=== PATIENT | female | born 2000 | race Hispanic/Latino ===

== ENCOUNTER 2023-08-22 21:57 | Outpatient (CLI) | payer MEDICAID, SELFPAY ==
[2023-08-22 22:25] VITALS: RESP 16; TEMP 37.3
[2023-08-22 22:26] VITALS: BP 118/86; PULSE 90
[2023-08-22 22:28] VITALS: BMI 34.1
[2023-08-22 23:07] LABS: ROM Internal Control Test YES-OK TO RESULT pt. (Internal QC); ROM Patient Test Negative (Negative); Record Kit Lot#, ROM+ K1866
--- NOTE | 2023-08-23 07:40 | OB.TRI.NOTE ---
HPI - General HPI Narrative AMOR PALACIOS, is a 22 F who presents with leaking fluid. Patient reports feeling like fluid is continuously coming out. Describes fluid as clear and odorless. Has to wear a pad. Positive movement. Denies any pain, cramps or contractions. Maternal Data Information LOGAN Calculator Estimated Delivery Date Method Current WG Current Estimate 09/07/23 Manual 37w 6d PFSH PFSH Home Medications ?Medication ?Instructions ?Recorded ?Last Taken ?Type PNV#14-iron fum-FA#6-mdx-xoywaoyv cap PO 08/22/23 08/22/23 History 27 mg iron-1 mg-300 mg-50 mg capsule sertraline 50 mg tablet (Zoloft) 50 mg PO DAILY 08/22/23 08/22/23 History Allergy/AdvReac Type Severity Reaction Status Date / Time No Known Allergies Allergy Verified 08/22/23 22:30 ROS Eyes Eyes: Denies blurry vision Cardiovascular Cardiovascular: Reports none; Denies chest pain at rest, chest pain with activity or dizziness Respiratory/Chest Respiratory/Chest: Denies cough or dyspnea Gastrointestinal Gastrointestinal: Reports none and other; Denies diarrhea or vomiting Genitourinary Genitourinary: Denies dysuria Musculoskeletal Musculoskeletal: Reports none Integumentary Integumentary: Reports none; Denies rash Neurologic Neurologic: Denies dizziness, headache(s) or other visual disturbances Psychiatric Psychiatric: Reports none NST FHR Rate Baby A Baseline: 115-120 Variability:: Moderate Accelerations:: 15 x 15 Decelerations:: None NST Reactive:: Yes FHR Category:: Category I Uterine Activity:: None Assessment & Plan (1) 37 weeks gestation of : (2) Leakage of amniotic fluid: (3) History of asthma: PLAN: Plan ROM Plus= NEGATIVE NST reactive, Cat. 1 tracing D/C home with follow up in office
== END 2023-08-22 23:20 | disposition home or self-care (01) ==
LOC: WPOUT 22:15 → WP 22:16
PROVIDERS: PCP Internal Medicine; Referring Provider Advanced Practice Midwife; Visit Provider Advanced Practice Midwife
DX: O42.92 Full-term premature rupture of membranes, unspecified as to length of time between rupture and onset of labor (principal); Z3A.37 37 weeks gestation of pregnancy
CPT/HCPCS: 59025; 59050; 84112; 99221; G0378

== ENCOUNTER 2023-09-05 22:48 | Outpatient (CLI) | payer MEDICAID, SELFPAY ==
[2023-09-05 23:03] VITALS: BMI 34.7
[2023-09-05 23:11] VITALS: BP 145/77; PULSE 80; O2SAT 99
[2023-09-05 23:12] VITALS: RESP 16; TEMP 36.7
[2023-09-05 23:19] VITALS: BP 134/71; PULSE 84
[2023-09-06] MEDS: Acetaminophen 500 MG Tablet 1000 MG PO (00:12)
--- NOTE | 2023-09-06 07:32 | OB.TRI.NOTE ---
HPI - General General Date of Admission: 09/05/23 Date of Service: 09/06/23 Chief Complaint: contractions HPI Narrative AMOR PALACIOS, is a 22 F who presents with increasing contractions. No LOF no bleeding. Cervix unchanged from office visit. Sent home with labor precautions Maternal Data Information LOGAN Calculator Estimated Delivery Date Method Current WG Current Estimate 09/07/23 Manual 39w 6d Final LOGAN: 09/07/23 PFSH PFSH Home Medications ?Medication ?Instructions ?Recorded ?Last Taken ?Type PNV#14-iron fum-FA#1-obg-bwapabpi 1 cap PO DAILY 08/22/23 08/22/23 History 27 mg iron-1 mg-300 mg-50 mg capsule sertraline 50 mg tablet (Zoloft) 50 mg PO DAILY 08/22/23 09/05/23 History Allergy/AdvReac Type Severity Reaction Status Date / Time No Known Allergies Allergy Verified 09/05/23 23:07 History 1 Elective abortions Hx Para 0 Spontaneous abortions Hx # Term Pregnancies Ectopic pregnancies Hx # Pregnancies Multiple births # of living children NST FHR Rate Baby A Baseline: 120 Variability:: Moderate Accelerations:: 15 x 15 Decelerations:: None NST Reactive:: Yes FHR Category:: Category I Uterine Activity:: irregular to q3 Assessment & Plan (1) Uterine contractions: (2) 39 weeks gestation of : PLAN: Plan Return with increasing contraction frequency or increasing pain.
[2023-09-06 12:05] VITALS: BP 138/80; PULSE 73; RESP 17; TEMP 36.1
[2023-09-06] MEDS: hydrOXYzine 50 MG/ML Vial 25 MG IM (13:08)
[2023-09-06] MEDS: morphine 10 MG/ML Syringe IM (13:10)
--- NOTE | 2023-09-07 16:44 | OB.TRI.NOTE ---
HPI - General General Date of Admission: 09/05/23 Chief Complaint: contractions HPI Narrative AMOR PALACIOS, is a 22 F who presents at 40w0d for back pain, contractions. No vaginal bleeding Maternal Data Information LOGAN Calculator Estimated Delivery Date Method Current WG Current Estimate 09/07/23 Manual 40w 0d PFSH PFSH Home Medications ?Medication ?Instructions ?Recorded ?Last Taken ?Type PNV#14-iron fum-FA#7-jue-lufblkxy 1 cap PO DAILY 08/22/23 09/06/23 History 27 mg iron-1 mg-300 mg-50 mg capsule sertraline 50 mg tablet (Zoloft) 50 mg PO DAILY 08/22/23 09/06/23 History Allergy/AdvReac Type Severity Reaction Status Date / Time No Known Allergies Allergy Verified 09/06/23 12:18 History 1 Elective abortions Hx Para 0 Spontaneous abortions Hx # Term Pregnancies Ectopic pregnancies Hx # Pregnancies Multiple births # of living children NST FHR Rate Baby A Baseline: 125 Variability:: Moderate Accelerations:: 15 x 15 Decelerations:: Variable NST Reactive:: Yes Uterine Activity:: Irregular Assessment & Plan (1) False labor: (2) 39 weeks gestation of : (3) Uterine contractions: PLAN: Plan 1) No cervical change 2) False labor 3) Therapeutic rest with morphine and vistaril. 1 LR 4) D/C home
== END 2023-09-06 15:05 | disposition home or self-care (01) ==
LOC: WPOUT 22:58 → WP 22:59
PROVIDERS: PCP Internal Medicine; Referring Provider Advanced Practice Midwife; Visit Provider Advanced Practice Midwife
DX: O47.1 False labor at or after 37 completed weeks of gestation (principal); Z3A.39 39 weeks gestation of pregnancy; Z79.899 Other long term (current) drug therapy
CPT/HCPCS: 96372; 59025; 59050; 99221; G0378

== ENCOUNTER 2023-09-07 10:15 | Outpatient (CLI) | payer MEDICAID, SELFPAY ==
[2023-09-07 10:35] VITALS: BP 141/87; PULSE 73; RESP 16; TEMP 36.9; O2SAT 97
[2023-09-07 10:42] VITALS: BMI 33.7
[2023-09-07 10:48] VITALS: BP 121/75; PULSE 81
--- NOTE | 2023-09-07 10:59 | NURSING ---
Phone call placed to Fernando Nguyen. Updated on pt status and vaginal exam, as well as complaints. Plan is to give 1L bolus, recheck at end of that and send home if exam is unchanged and ROM is negative.
[2023-09-07] MEDS: Lactated Ringers 1,000 ML 999 ML IV (11:20)
[2023-09-07 11:38] LABS: ROM Internal Control Test YES-OK TO RESULT pt. (Internal QC); ROM Patient Test Negative (Negative); Record Kit Lot#, ROM+ K1866
--- NOTE | 2023-10-09 01:52 | OB.TRI.NOTE ---
HPI - General HPI Narrative AMOR PALACIOS, is a 22 F who presents at 39 weeks 6 days with irregular contractions. No vaginal bleeding. Possible fluid leakage. Maternal Data Information [employer] Calculator Estimated Delivery Date Method Current WG Current Estimate 09/26/23 Manual 41w 6d PFSH PFS Medical History (Updated 10/01/23 @ 06:06 by Merissa Nguyen CNM) (spontaneous vaginal delivery) Psychiatric disorder Home Medications ?Medication ?Instructions ?Recorded ?Last Taken ?Type PNV#14-iron fum-FA#1-mgw-zctoiryx 1 cap PO DAILY 08/22/23 09/08/23 20:00 History 27 mg iron-1 mg-300 mg-50 mg capsule sertraline 50 mg tablet (Zoloft) 50 mg PO DAILY depression 08/22/23 09/09/23 10:00 History Allergy/AdvReac Type Severity Reaction Status Date / Time No Known Allergies Allergy Verified 09/06/23 12:18 Surgical History (Updated 09/09/23 @ 15:35 by Aurora Boss) History of surgery Social History Smoking Status: Never smoker History 1 Elective abortions Hx Para 0 Spontaneous abortions Hx # Term Pregnancies Ectopic pregnancies Hx # Pregnancies Multiple births # of living children NST FHR Rate Baby A Baseline: 130 Variability:: Moderate Accelerations:: 15 x 15 Decelerations:: None NST Reactive:: Yes Uterine Activity:: every 3-10 minutes mild Assessment & Plan (1) False labor: PLAN: Plan 1) No cervical change 2) 1L LR bolus 3) ROM plus negative 4) D/C home
== END 2023-09-07 12:55 | disposition home or self-care (01) ==
LOC: WPOUT 10:23 → WP 10:24
PROVIDERS: PCP Internal Medicine; Referring Provider Advanced Practice Midwife; Visit Provider Advanced Practice Midwife
DX: O47.1 False labor at or after 37 completed weeks of gestation (principal); Z3A.39 39 weeks gestation of pregnancy
CPT/HCPCS: 59025; 59050 ×2; 84112; G0378 ×2; J7120; 99221

== ENCOUNTER 2023-09-09 14:10 | Inpatient (IN) | payer MEDICAID, SELFPAY ==
[2023-09-09] VITALS (34 sets, daily range): BP systolic 116–142; BP diastolic 56–89; PULSE 67–115; RESP 14–18; TEMP 36.3–37.4; O2SAT 97–100; BMI 34.2
[2023-09-09] MEDS: Penicillin G Pot 5,000,000 UNITS in 0.9% Normal Saline (100mL MB+) 100 ML 150 UNITS IV (14:40)
[2023-09-09] MEDS: Lactated Ringers 1,000 ML 50 ML IV (14:41)
[2023-09-09 15:17] LABS: Absolute Lymphocyte Count 1.32 X10^3/uL (0.83-4.51); Absolute Neutrophil Count 11.6 X10^3/uL (2.0-7.7); Basophil# 0.03 X10^3/uL; Basophil% 0.2 % (0-1); Hematocrit 37.5 % (37-47); Hemoglobin 11.7 g/dL (12.0-15.0); Lymphocyte # 1.32 X10^3/ul (0.83-4.51); Lymphocyte % 9.5 % (19-41); Mean Corp Hgb Conc 31.2 g/dL (32-36); Mean Corpuscular Hgb 24.1 pg (27.0-32.0); Mean Corpuscular Volume 77.3 fL (81-99); Mean Platelet Vol. 13.7 fl (6.2-12.0); Monocyte# 0.89 X10^3/uL; Monocyte% 6.4 % (0-10); NRBC Flagged by Analyzer 0 % (0-5); Neutrophil # 11.56 X10^3/uL (2.7-7.7); Neutrophil % 83.4 % (47-70); Platelet Count 172 K/mm3 (150-450); RBC Distribution Width CV 16.5 % (11.6-14.6); RBC Distribution Width SD 45.9 fl (35.1-43.9); Red Blood Count 4.85 M/mm3 (4.2-5.4); White Blood Count 13.9 K/mm3 (4.4-11.0)
[2023-09-09 15:50] LABS: AST(SGOT) 20 U/L (15-37); Alanine Aminotransfer ALT/SGPT 13 U/L (13-56); Creatinine, Serum 0.83 mg/dL (0.55-1.02); EST Glomerular Filtration Rate 91 mL/min (>60); Est Glom Filt Rate - Afr Amer 110 mL/min (>60); Estimated Creatinine Clearance 103.32 ml/min; Uric Acid 5.3 mg/dL (2.6-6.0)
[2023-09-09] MEDS: fentaNYL 100 MCG/2 ML Ampul IV (16:26)
[2023-09-09 16:28] LABS: Syphilis Antibodies Non-reactive
[2023-09-09] MEDS: Lactated Ringers 1,000 ML 999 ML IV (16:59)
[2023-09-09 17:50] LABS: Protein, Urine (Random) 62.5 mg/dL (<11.9); Protein:Creat Ratio 282 mg/g CRE (0-200)
[2023-09-09] MEDS: fentaNYL-bupivacaine (epidural) 100 ML BAG EPIDURAL ×2 (17:50→23:55)
[2023-09-09] MEDS: Penicillin G 3,000,000 Units 50 ML 100 UNITS IV ×2 (18:35→22:49)
[2023-09-09] MEDS: Lactated Ringers 1,000 ML 200 ML IV (20:06)
--- NOTE | 2023-09-09 21:38 | PCM.PN.OB ---
Subjective Subjective AROM with blood tinged fluid possible [facility] at 1815. 4cm/90/-1 cat 1 Objective Data Objective Data Vital Signs: Vital Signs Temp Pulse Resp BP Pulse Ox 97.9 F 100 16 129/67 H 100 09/09/23 21:31 09/09/23 21:33 09/09/23 21:31 09/09/23 21:33 09/09/23 21:31 Weight: 82.2 kg Body Mass Index (BMI) 34.2 Intake & Output: Intake and Output for Last 24 Hours 09/07/23 09/08/23 09/09/23 23:59 23:59 23:59 Intake Total 1903.33 / 1903.33 Output Total 300 / 300 Balance 1603.33 / 1603.33 Lab / Micro Data 09/09/23 14:30 09/09/23 14:30 Labs: Laboratory Results - last 24 hr 09/09/23 14:30: WBC 13.9 H, RBC 4.85, Hgb 11.7 L, Hct 37.5, MCV 77.3 L, MCH 24.1 L, MCHC 31.2 L, RDW Std Deviation 45.9 H, RDW Coeff of Silverio 16.5 H, Plt Count 172, MPV 13.7 H, Immature Gran % (Auto) 0.500, Neut % (Auto) 83.4 H, Lymph % (Auto) 9.5 L, [place] % (Auto) 6.4, Eos % (Auto) 0.0, Baso % (Auto) 0.2, Absolute Neuts (auto) 11.6 H, Absolute Lymphs (auto) 1.32, Nucleated RBC % 0, Creatinine 0.83, Estim Creat Clear Calc 103.32, Est GFR (MDRD) Af Amer 110, Est GFR (MDRD) Non-Af 91, Uric Acid 5.3, AST 20, ALT 13, Syphilis Total Ab Non-reactive, Blood Type B POSITIVE, Antibody Screen NEGATIVE 09/09/23 17:20: U Random Total Protein 62.5 H, Urine Creatinine 222.00, Protein/Creatinin Ratio 282 H NST FHR Rate Baby A Baseline: 130 Variability:: Moderate Accelerations:: 15 x 15 Decelerations:: None NST Reactive:: Yes FHR Category:: Category I
--- NOTE | 2023-09-09 21:45 | PCM.HP.OB ---
HPI - General General Date of Admission: 09/09/23 Date of Service: 09/09/23 Chief Complaint: labor HPI Narrative AMOR PALACIOS, is a 22 F who presents active labor Maternal Data Information LOGAN Calculator Estimated Delivery Date Method Current WG Current Estimate 09/07/23 Manual 40w 2d Final LOGAN: 09/07/23 Gestational age: 40+2 PFSH PFSH Medical History (Updated 09/09/23 @ 21:[address] Keila Choudhury MD) Psychiatric disorder Home Medications ?Medication ?Instructions ?Recorded ?Last Taken ?Type PNV#14-iron fum-FA#6-oiy-ughpfkbn 1 cap PO DAILY 08/22/23 09/08/23 20:00 History 27 mg iron-1 mg-300 mg-50 mg capsule sertraline 50 mg tablet (Zoloft) 50 mg PO DAILY depression 08/22/23 09/09/23 10:00 History Allergy/AdvReac Type Severity Reaction Status Date / Time No Known Allergies Allergy Verified 09/06/23 12:18 Surgical History (Updated 09/09/23 @ 15:35 by Aurora Boss) History of surgery Social History Smoking Status: Never smoker History 1 Elective abortions Hx Para 0 Spontaneous abortions Hx # Term Pregnancies Ectopic pregnancies Hx # Pregnancies Multiple births # of living children NST FHR Rate Baby A Baseline: 140 Variability:: Moderate Accelerations:: 15 x 15 Decelerations:: None NST Reactive:: Yes FHR Category:: Category I Vital Signs Vital Signs Vital Signs: 09/09/23 13:55 09/09/23 13:55 09/09/23 13:55 Temperature Temperature Source Pulse Rate 84 82 Respiratory Rate Blood Pressure 142/86 H BP Systolic 142 BP Diastolic 86 Pulse Ox 09/09/23 13:55 09/09/23 14:01 09/09/23 14:01 Temperature Temperature Source Pulse Rate 84 Respiratory Rate Blood Pressure BP Systolic BP Diastolic Pulse Ox 100 99 09/09/23 14:06 09/09/23 14:06 09/09/23 14:10 Temperature Temperature Source Pulse Rate 78 Respiratory Rate Blood Pressure 139/89 H BP Systolic 139 BP Diastolic 89 Pulse Ox 98 09/09/23 14:10 09/09/23 14:11 09/09/23 14:11 Temperature Temperature Source Pulse Rate 67 85 Respiratory Rate Blood Pressure BP Systolic BP Diastolic Pulse Ox 97 09/09/23 14:16 09/09/23 14:16 09/09/23 14:21 Temperature Temperature Source Pulse Rate 81 79 Respiratory Rate Blood Pressure BP Systolic BP Diastolic Pulse Ox 98 09/09/23 14:21 09/09/23 15:15 09/09/23 15:15 Temperature Temperature Source Temporal Pulse Rate 82 Respiratory Rate Blood Pressure BP Systolic BP Diastolic Pulse Ox 99 09/09/23 15:15 09/09/23 15:15 09/09/23 15:15 Temperature 99.3 F H Temperature Source Pulse Rate Respiratory Rate 18 Blood Pressure BP Systolic BP Diastolic Pulse Ox 99 09/09/23 15:16 09/09/23 15:16 09/09/23 16:13 Temperature Temperature Source Pulse Rate 82 Respiratory Rate Blood Pressure 139/87 H BP Systolic 139 BP Diastolic 87 Pulse Ox 98 09/09/23 16:48 09/09/23 16:48 09/09/23 17:37 Temperature Temperature Source Pulse Rate 69 91 Respiratory Rate Blood Pressure 131/78 H BP Systolic 131 BP Diastolic 78 Pulse Ox 09/09/23 17:37 09/09/23 17:42 09/09/23 17:42 Temperature Temperature Source Pulse Rate 93 Respiratory Rate Blood Pressure BP Systolic BP Diastolic Pulse Ox 100 100 09/09/23 17:42 09/09/23 17:46 09/09/23 17:46 Temperature Temperature Source Pulse Rate 91 Respiratory Rate 18 Blood Pressure 121/65 H BP Systolic 121 BP Diastolic 65 Pulse Ox 09/09/23 17:47 09/09/23 17:47 09/09/23 17:48 Temperature Temperature Source Temporal Pulse Rate 100 Respiratory Rate Blood Pressure BP Systolic BP Diastolic Pulse Ox 97 09/09/23 17:48 09/09/23 17:48 09/09/23 17:52 Temperature 98.2 F Temperature Source Pulse Rate Respiratory Rate 16 Blood Pressure 117/56 L BP Systolic 117 BP Diastolic 56 Pulse Ox 09/09/23 17:52 09/09/23 17:52 09/09/23 17:52 Temperature Temperature Source Pulse Rate 93 94 Respiratory Rate 15 Blood Pressure BP Systolic BP Diastolic Pulse Ox 09/09/23 17:52 09/09/23 17:56 09/09/23 17:56 Temperature Temperature Source Pulse Rate 98 Respiratory Rate Blood Pressure 116/57 L BP Systolic 116 BP Diastolic 57 Pulse Ox 97 09/09/23 17:57 09/09/23 17:57 09/09/23 17:57 Temperature Temperature Source Pulse Rate 96 Respiratory Rate 16 Blood Pressure BP Systolic BP Diastolic Pulse Ox 97 09/09/23 18:02 09/09/23 18:02 09/09/23 18:02 Temperature Temperature Source Pulse Rate 99 Respiratory Rate Blood Pressure 121/59 H BP Systolic 121 BP Diastolic 59 Pulse Ox 98 09/09/23 18:02 09/09/23 18:07 09/09/23 18:07 Temperature Temperature Source Pulse Rate 92 Respiratory Rate 17 Blood Pressure 124/65 H BP Systolic 124 BP Diastolic 65 Pulse Ox 09/09/23 18:07 09/09/23 18:07 09/09/23 18:07 Temperature Temperature Source Pulse Rate 89 Respiratory Rate 15 Blood Pressure BP Systolic BP Diastolic Pulse Ox 98 09/09/23 18:11 09/09/23 18:11 09/09/23 18:12 Temperature Temperature Source Pulse Rate 86 88 Respiratory Rate Blood Pressure 116/58 L BP Systolic 116 BP Diastolic 58 Pulse Ox 09/09/23 18:12 09/09/23 18:12 09/09/23 18:12 Temperature Temperature Source Temporal Pulse Rate Respiratory Rate 16 Blood Pressure BP Systolic BP Diastolic Pulse Ox 97 09/09/23 18:12 09/09/23 18:39 09/09/23 18:39 Temperature 98.0 F Temperature Source Pulse Rate 82 Respiratory Rate Blood Pressure BP Systolic BP Diastolic Pulse Ox 99 09/09/23 18:41 09/09/23 18:41 09/09/23 18:41 Temperature Temperature Source Temporal Pulse Rate 82 Respiratory Rate Blood Pressure 116/74 BP Systolic 116 BP Diastolic 74 Pulse Ox 09/09/23 18:41 09/09/23 18:41 09/09/23 19:37 Temperature 98.4 F Temperature Source Pulse Rate Respiratory Rate 15 Blood Pressure 116/60 BP Systolic 116 BP Diastolic 60 Pulse Ox 09/09/23 19:37 09/09/23 19:37 09/09/23 19:37 Temperature Temperature Source Temporal Pulse Rate 86 Respiratory Rate Blood Pressure BP Systolic BP Diastolic Pulse Ox 99 09/09/23 19:37 09/09/23 19:37 09/09/23 19:45 Temperature 98.8 F Temperature Source Pulse Rate 101 H Respiratory Rate 14 Blood Pressure BP Systolic BP Diastolic Pulse Ox 09/09/23 19:45 09/09/23 19:51 09/09/23 19:51 Temperature Temperature Source Pulse Rate 101 H Respiratory Rate Blood Pressure BP Systolic BP Diastolic Pulse Ox 98 100 09/09/23 20:15 09/09/23 20:15 09/09/23 20:15 Temperature Temperature Source Temporal Pulse Rate 106 H Respiratory Rate Blood Pressure 124/74 H BP Systolic 124 BP Diastolic 74 Pulse Ox 09/09/23 20:15 09/09/23 20:15 09/09/23 21:31 Temperature 97.4 F L Temperature Source Pulse Rate 95 Respiratory Rate 16 Blood Pressure BP Systolic BP Diastolic Pulse Ox 09/09/23 21:31 09/09/23 21:31 09/09/23 21:31 Temperature Temperature Source Temporal Pulse Rate Respiratory Rate 16 Blood Pressure BP Systolic BP Diastolic Pulse Ox 100 09/09/23 21:31 09/09/23 21:33 09/09/23 21:33 Temperature 97.9 F Temperature Source Pulse Rate 100 Respiratory Rate Blood Pressure 129/67 H BP Systolic 129 BP Diastolic 67 Pulse Ox Weight Weight: 82.2 kg Body Mass Index (BMI) 34.2 Labs Labs Labs: Blood Type B POSITIVE Antibody Screen NEGATIVE Hct 37.5 % (37-47) Hgb 11.7 g/dL (12.0-15.0) L Syphilis Total Ab Non-reactive Assessment & Plan (1) Active labor at term: (2) 40 weeks gestation of : (3) Positive GBS test: PLAN: Plan Augmentation prn PCN for GBS Epidural prn
[2023-09-10] VITALS (55 sets, daily range): BP systolic 106–139; BP diastolic 57–80; PULSE 62–132; RESP 14–18; TEMP 36.3–37.5; O2SAT 97–100
[2023-09-10] MEDS: Oxytocin 15 Units/NS 250ml 15 UNITS/250 ML IV.SOLN 2 UNITS IV (00:38)
[2023-09-10] MEDS: Lactated Ringers 1,000 ML 200 ML IV (01:05)
[2023-09-10] MEDS: Penicillin G 3,000,000 Units 50 ML 100 UNITS IV (03:10)
--- NOTE | 2023-09-10 05:50 | EX.PCM.OBRPT ---
Assessment & Plan (1) (spontaneous vaginal delivery): (2) Positive GBS test: (3) 40 weeks gestation of : Maternal Data Information LOGAN Calculator Estimated Delivery Date Method Current WG Current Estimate 09/07/23 Manual 40w 3d Final LOGAN: 09/07/23 Gestational age: 40+3 Doctor Who Attended Delivery: Abraham Kessler Vaginal Delivery Maternal Presentation Maternal Presentation: Active Labor Maternal Presentation: Presented in active labor, membranes intact Type of Induction: Pitocin and Amniotomy Operative Information Date of Procedure: 09/10/23 Pre-Operative Diagnosis: Labor at term Post-Operative Diagnosis: same Surgery / Procedure Performed: Spontaneous Vaginal Delivery Type of Anesthesia: Epidural Drain: Dean to straight drain Estimated Blood Loss: 100 cc Time of Delivery: 05:34 Findings Description of Procedure: Patient progressed to complete and pushed for about 1 hour delivering the head OA followed by the anterior and posterior shoulders with ease. The infant was placed on the maternal abdomen. The cord was clamped and cut. The placenta was delivered with manual traction. No lacerations were found. Presentation: Vertex and LIZZY Amniotic Membrane Rupture Type: Artificial Time of Membrane Rupture: 1814 Amniotic Fluid Description: Moderate meconium Placental Delivery Description: Spontaneous Placenta Disposition: [facility] Cord Vessel Description: 3 Vessels Cord Entanglement: None Infant A Gender: Male (1 minute): 7 (5 minute): 8 Delayed Cord Clamping: Yes Post Vaginal Delivery Medications Given After Delivery: IV Pitocin Episiotomy Description: None Laceration: None Complication Complications: None
[2023-09-10] MEDS: Oxytocin 15 Units/NS 250ml 15 UNITS/250 ML IV.SOLN 83 UNITS IV (06:07)
[2023-09-10] MEDS: Acetaminophen 500 MG Tablet 1000 MG PO ×2 (06:16→15:37)
[2023-09-10] MEDS: Lactated Ringers 500 ML 999 ML IV (06:18)
[2023-09-10] MEDS: Prenatal Vits Tablet 1 TABLET PO (11:06)
[2023-09-10] MEDS: Sertraline 50 MG Tablet PO (11:06)
[2023-09-11 04:20] VITALS: BP 118/78; PULSE 90; RESP 12; TEMP 36.4; O2SAT 99
--- NOTE | 2023-09-11 08:47 | PCM.DC.SUM ---
Providers Date of Admission: 09/09/23 Primary Care Physician: Dr. Funmilayo Berger DO Reason For Visit: VAGINAL DELIVERY Diagnosis Discharge Diagnosis (1) (spontaneous vaginal delivery): Status: Acute Code(s): O80 - Encounter for full-term uncomplicated delivery (2) 40 weeks gestation of : Status: Acute Code(s): Z3A.40 - 40 weeks gestation of (3) Active labor at term: Status: Acute Medications at Discharge Home Medications PNV#14-iron fum-FA#2-cri-nwzvyjwk 27 mg iron-1 mg-300 mg-50 mg capsule 1 cap PO DAILY 08/22/23 sertraline 50 mg tablet (Zoloft) 50 mg PO DAILY depression 08/22/23 Hospital Course Operations None Procedures None Summary of Care Provided Minutes Spent on Discharge: 15 Hospital Course: Patient had . Hospital course was uneventful. Physical Exam Narrative Patient seen at bedside. Denies pain. Ambulating and voiding without difficulty. Lochia decreased. Desires discharge home today. Const alert and no apparent distress General Appearance: cooperative and comfortable Exam Limitations: no limitations HEENT normocephalic Eyes General Eye: normal appearance of both eyes Neck full ROM General: normal visual inspection Chest Chest: symmetrical chest wall rise Resp normal respiratory effort and normal air movement Effort and Inspection: symmetric chest movement Auscultation: clear to auscultation bilaterally Cardio regular rate and regular rhythm GI normal to inspection, nondistended, normoactive bowel sounds Back/Spine normal ROM Extremity full ROM and no calf tenderness General Extremity: normal exam except as noted Skin no rashes or lesions noted Neuro CN's II-XII intact bilaterally Psych mental status grossly normal Weight / BMI Weight Weight: 181 lb 3.52 oz Body Mass Index (BMI) 34.2 ABG / Lab / Microbiology Data 09/09/23 14:30 09/09/23 14:30 D/C Instructions Discharge Diet: No restrictions May resume sexual activity in: 6-8 weeks Weight Bearing Status: Weight bearing as tolerated Call your doctor if you observe: Fever of 101 or Higher, Inability to urinate, Using more than 1 pad per hour, Shortness of breath, Chest pain, Calf discomfort and Uncontrolled pain Please Follow Up With: Sachi Manzo CNM When: 2 weeks virtual visit/ 6 weeks in office Meaningful Use Info Meaningful Use Meaningful Use Diagnoses (Choose all that apply): None applicable Ischemic Stroke Statin Dosing Therapy Reference: STATIN DOSE THERAPY REFERENCE: * Patients > 75 years receive moderate or high dose statin therapy. * Patients 75 years or YOUNGER should receive HIGH intensity statin dose unless contraindicated. You will be required to document reason for non-treatment if statin daily dose does not meet guidelines. HIGH DOSE STATIN THERAPY DAILY Atorvastatin > than or = to 40 mg Rosuvastatin > than or = to 20 mg Amlodipine + Atorvastatin > than or = to 2.5/40 mg Ezetimibe + Simvastatin 10/80 mg Simvastatin 80mg Discharge Plan Admission Admit Date/Time: 09/09/23 14:10 Primary Reason for Your Visit: Labor and Delivery Attending Provider: Keila Choudhury Primary Care Provider: Funmilayo Berger Discharge Orders/Prescriptions Prescriptions: Continued sertraline [Zoloft] 50 mg tablet 50 mg PO DAILY PNV #14-iron-FA#0-ile-pffdlgea 27 mg iron-1 mg -300 mg-50 mg capsule 1 cap PO DAILY Referrals / Follow Up: Funmilayo Berger, [Primary Care Provider] - Disposition Disposition (needs filled in before D/C Order can be placed): Home, Self Care
[2023-09-11 08:50] VITALS: BP 117/80; PULSE 91; RESP 16; TEMP 35.9; O2SAT 99
[2023-09-11] MEDS: Sertraline 50 MG Tablet PO (09:11)
[2023-09-11] MEDS: Senna/Docusate Sodium 1 Tablet PO (09:11)
--- NOTE | 2023-09-11 11:31 | CASEMGMT ---
Social Work Assessment Labor and Delivery Unit Patient Address: [address] [place], [place] [address] Phone number: [phone] Date of Referral: 09/10/23 Time of Referral:? 1525 Referred By: Keila Choudhury Date of Intervention: ??09/11/23 Time of Intervention:? 1045 Reason for Referral:? mental health Sw completed chart review and acknowledges social work consult due to maternal mental health. Sw presented to bedside and introduced self to mother of baby (MOB- Nancy) and father of baby (FOB- Nisha). Also present was maternal grandmother. MOB stated that it was okay for sw to complete assessment with FOB and maternal grandmother present. Sw completed psychosocial assessment. History obtained from: medical records, MOB and maternal grandma Household composition: MARIBELL states that she is currently residing with her parents, baby also to reside with them when ready for discharge. MOB denies any issues or concerns with housing at this time. Patient's parent/guardian status:? MARIBELL states that she and FOB were introduced to each other by mutual friends and have been together for 1.5 years. MOB denies any issues or concerns with domestic violence or intimate partner violence. This is first baby for both parents. ? Medical History: ?MARIBELL is 22 year old female who is 1, para 0- now 1 following labor and delivery. MARIBELL received routine care during with [facility]. MARIBELL presented to hospital and delivered baby on 09/10/23 via vaginal delivery at 40 weeks gestation. Baby boy, named Jacob, was born weighing 8lb 9oz with apgars of 8 and 9 at one and five minutes of life, respectfully. MARIBELL states that breast feeding is not going as she had expected, but she is working on pumping to provide milk to baby. Baby will be followed by Dr. Natan Weber for pediatrics. Educational Status:? Both parents graduated from high school. MARIBELL states that she has obtained her Bachelor's degree in Psychology. Parents able to read, write and understand what is read. Financial Status: FOVincent is gainfully employed working for a [employer], MARIBELL states that she is unemployed at this time and dependent upon resources ([employer] and [facility]) and her parents to help her financially. Infant Supplies:??MARIBELL states that she has obtained all necessary baby supplies for baby, including: car seat, safe sleep space, clothes, diapers and wipes. Childcare/Caregiver(s):?MARIBELL reports that she will be the primary caregiver to baby along with FOB when he is not working. MOB states that she will also have the help/ assistance of her mother. Transportation:??Both parents have their drivers license and reliable means of transportation. No barriers at this time. Programs/Agencies Involved: ???MARIBELL states that she is connected to [facility] for insurance and [facility]- has an appointment scheduled for 09/15. MOB denies any linkage to community resources that provide mental health services/ supports. Children Services/Legal Issues:??? No history of children services involvement, no issues or concerns warranting referral to be made at this time. Behavioral Health Issues: ??Mental Health History:?TERRIE denies mental health diagnoses. MOB states that she has been diagnosed with anxiety and is prescribed zoloft by her primary care doctor. MOB states that anxiety is something that she has experienced for a while now, that she believes she has managed with the help of her medication. MOB states that she is familiar of signs and symptoms of baby blues and mood and anxiety disorders to be on the look out for. ?? Substance Use History:MOB denies substance use prior to and during . ?? Family History:??MOB denies family history of substance use, addiction use issues and significant mental health diagnoses. ??? Drug Screens: ?No drug screens observed during chart review. ? Family/Social Stressors:? MOB denies and issues, concerns or stressors at this time. Support Systems: MARIBELL identifies that her mom is her biggest support person. Depression/Shaken Baby/Safe Sleeping:? Sw educated MOB, FOB and maternal grandma on signs and symptoms of baby blues and mood and anxiety disorders. Sw educated MOB that mother's with history of mental health are more at risk of experiencing mood/ anxiety disorders. MOB states that at this time she feels slightly nervous, and states that it she is still navigating how to recognize baby's needs and what his cries mean. Sw provided support and education. Sw explained shaken baby prevention and ABCs of safe sleep. MOB expressed understanding. ASSESSMENT:? MOB and baby admitted following labor and delivery of . MOB with mental health history positive for anxiety, and is prescribed Lexapro through her primary care doctor. MOB states that she is familiar with what to be on the lookout for regarding baby blues and depression and anxiety. MOB asked appropriate questions and reports to know the importance of talking to her supports if she feels as though she is struggling. MOB was observed holding baby lovingly and appropriately. MOB initially appeared to struggle on how to calm baby when crying, maternal grandma stepped in and offered to help MOB. FOB also present for portion of assessment, answered questions asked directly towards him. Nursing staff report FOB has been sleeping a lot of the time. PLAN:? MOB and baby to be discharged when medically ready. ?No other services requested or indicated. Byron Arambula, BRIM CURLER, [employer]
[2023-09-11 13:40] VITALS: BP 124/80; PULSE 93; RESP 16; TEMP 36.2; O2SAT 100
== END 2023-09-11 14:50 | disposition home or self-care (01) | DRG 560 ==
LOC: WPOUT 14:12 → WP 14:12
PROVIDERS: Admitting Provider Obstetrics & Gynecology; PCP Internal Medicine; Referring Provider Obstetrics & Gynecology; Visit Provider Obstetrics & Gynecology
DX: O99.824 Streptococcus B carrier state complicating childbirth (principal); Z37.0 Single live birth; O77.0 Labor and delivery complicated by meconium in amniotic fluid; Z3A.40 40 weeks gestation of pregnancy; Z79.899 Other long term (current) drug therapy
CPT/HCPCS: 59025; 59050; 82565; 82570; 84112; 84156; 84450; 84460; 84550; 85025; 86780; 86850; 86900; 86901; 99221; J7120; G0378